=== PATIENT | female | born 1985 | race Caucasian/White ===

== ENCOUNTER 2021-05-01 12:23 | Emergency (ER) | payer OTHER, SELFPAY ==
[2021-05-01 12:32] VITALS: BP 144/86; PULSE 99; RESP 20; TEMP 36.5; O2SAT 100
--- NOTE | 2021-05-01 12:43 | ED.FEMALEGU ---
HPI - Female Genitourinary General Chief complaint: Urogenital-Female Stated complaint: uti Time Seen by Provider: 05/01/21 12:43 Source: patient and RN notes reviewed Mode of arrival: ambulatory Limitations: no limitations History of Present Illness HPI Narrative: 35-year-old female presents to the [facility] with complaints of urinary frequency, urgency and burning. Patient states it started a few days ago did some [id number] treatments, went away. Patient states she woke up this morning with even worse burning, frequency and urgency. Has suprapubic pressure. No back pain or abdominal pain. No chest pain. No fevers nausea vomiting or diarrhea. Related Data Allergies Allergy/AdvReac Type Severity Reaction Status Date / Time Penicillins Allergy Unknown Swelling Verified 05/01/21 12:38 Review of Systems Review of Systems: All systems reviewed & are unremarkable except as noted in HPI and below Constitutional: Constitutional: Reports no additional constitutional complaints Eyes: Eyes: Reports no additional eye complaints ENT: Reports system reviewed and no additional complaints, except as documented Cardiovascular: Cardiovascular: Reports no additional cardiovascular complaints Respiratory: Respiratory: Reports no additional respiratory complaints Gastrointestinal: Gastrointestinal: Reports as per HPI, Denies nausea and Denies vomiting Comments: Suprapubic pressure Genitourinary: Genitourinary: Reports as per HPI, Reports nocturia, Reports dysuria and Denies flank pain Musculoskeletal: Musculoskeletal: Reports no additional musculoskeletal complaints Integumentary/Breasts: Skin/Breast: Reports system reviewed and no additional complaints, except as docu Neurologic: Reports system reviewed and no additional complaints, except as documented Psychiatric: Psychiatric: Reports no additional psychiatric complaints Allergic/Immunologic: Allergic/Immunologic: Reports no additional allergic/immunologic complaints [facility] Past Medical History Medical History (Updated 05/01/21 @ 18:19 by Apolonia Wong) No significant medical problems Surgical History Surgical History (Updated 05/01/21 @ 18:20 by Apolonia Wong) Hx of inguinal hernia surgery Social History Social History (Updated 05/01/21 @ 18:20 by Apolonia Wong) Substance use: never Living arrangements: with family Gender identity (if verbalized by the patient): Female Comments At the time of my signature, I reviewed and agree with the nursing past medical, surgical, social, and family history. There is no relevant family history pertinent to the patient complaint. Exam Const: General: healthy appearing, no acute distress and alert Nutritional Appearance: well nourished Orientation/consciousness: patient oriented x3 HENMT: Head: normal to inspection Ears: external ears normal Eyes: Conjunctivae: conjunctivae normal Pupils: Equal, round and reactive pupils present Neck: Neck: normal visual inspection, no lymphadenopathy and no meningeal signs Chest: Chest palpation & inspection: normal inspection of the chest Resp: Effort & Inspection: normal respiratory effort and no use of accessory muscles Auscultation: clear to auscultation bilaterally, no rales, no rhonchi and no wheezes Cardio: Rate: regular rate Rhythm: regular rhythm GI: GI Palp: Yes Soft to palpation, Yes Tenderness to palpation present (GI) (Suprapubic), No Guarding due to palpation present (GI) and No Rebound tenderness present : General: Yes no CVA tenderness Back/Spine/Pelvis: Back: no CVA tenderness Skin: General skin exam: normal color Rashes: no rashes Wounds: no wounds Neuro: General: patient oriented x3, moves all extremities, no meningeal signs and no focal motor deficits Speech: normal speech Gait exam (Neuro): Normal gait present Extrem: General: normal to inspection and no pedal edema Psych: Mental Status: mental status grossly normal Affect: nor
== END 2021-05-01 13:00 | disposition home or self-care (01) ==
PROVIDERS: Emergency Provider Nurse Practitioner; PCP Family Medicine
DX: N30.01 Acute cystitis with hematuria (principal)
CPT/HCPCS: 81003; 87086; 99203; G0463

== ENCOUNTER 2022-01-09 06:06 | Emergency (ER) | payer OTHER, SELFPAY ==
--- NOTE | ~2022-01-09 | CT_ITS ---
EXAMINATION: CTA chest PE protocol DATE: 01/09/2022 08:01 INDICATION: Chest pain. Shortness of breath. TECHNIQUE: Computed tomography angiography (CTA) of the chest was performed with 100 mL Omnipaque-350 intravenous contrast timed to evaluate the pulmonary arteries. Coronal maximum intensity projection 3D-reconstructions were created by the technologist. Automated exposure control and iterative reconst ruction technique were employed. The dose-length product was 361.75 mGy-cm. COMPARISON: None. FINDINGS: Calcified right lung nodules and calcified right hilar lymph nodes are consistent with old granulomatous disease. There is minimal atelectasis bilaterally. There are 3 mm and 4 mm nodules in r ight upper lobe, likely benign. There is a 4 mm nodule in right middle lobe, likely benign. No pleura l effusion. The heart size is normal. No pericardial effusion. There is no pulmonary embolus. There i s mild thoracic spondylosis. IMPRESSION: 1. No pulmonary embolus. Reviewed, dictated and finalized at location A. IMPRESSION: 1. No pulmonary embolus.
[2022-01-09 06:10] VITALS: BP 119/74; PULSE 85; RESP 28; TEMP 36.3; O2SAT 100
[2022-01-09 06:35] VITALS: PULSE 85; O2SAT 100
--- NOTE | 2022-01-09 06:37 | ECG_ITS ---
Measurements Intervals [place] Rate: 81 P: 35 [place]: 144 QRS: 48 QRSD: 90 T: 29 QT: 330 QTc: 384 Interpretive Statements SINUS RHYTHM NORMAL ELECTROCARDIOGRAM NO PREVIOUS ECG AVAILABLE FOR COMPARISON Electronically Signed On 01-09-2022 15:54:00 CDT by Brooks Acevedo M.D.
--- NOTE | 2022-01-09 06:48 | ED.SOB ---
HPI - SOB/Dyspnea General Stated Complaint: SOB Source: patient Mode of arrival: ambulatory Limitations: no limitations History of Present Illness HPI Narrative: This is a 36-year-old female with no significant past medical history, presents with some shortness of breath and unable to catch her breath appears anxious, patient denies having any chest pain did have some episodes of nausea and vomiting currently no nausea or vomiting but does have some epigastric burning sensation, with no abdominal pain no flank pain no dysuria no headaches or blurry vision. proximally 1 to 2 months ago was tested positive for COVID she had similar symptoms but never got tested. MD elicited complaint: shortness of breath Onset (ago): hour(s) Timing: intermittent Severity: moderate Associated symptoms: nausea/vomiting Treatment prior to arrival: none Related Data Allergies Allergy/AdvReac Type Severity Reaction Status Date / Time Penicillins Allergy Unknown Swelling Verified 01/09/22 08:14 Review of Systems Review of Systems: All systems reviewed & are unremarkable except as noted in HPI and below PMFSH Past Medical History Medical History No significant medical problems Surgical History Surgical History Hx of inguinal hernia surgery Social History Social History Substance use: never Gender identity (if verbalized by the patient): Female Exam Const: General: healthy appearing and no acute distress HENMT: Head: normal to inspection Face and sinus: normal facial exam Mouth: Yes Normal oral and palatal mucosa present Eyes: Conjunctivae: conjunctivae normal Pupils: Equal, round and reactive pupils present EOM: EOMs intact bilaterally Direct Ophthalmoscopy: no photophobia Neck: Neck: normal visual inspection, no lymphadenopathy and no meningeal signs Chest: Chest palpation & inspection: normal inspection of the chest Resp: Effort & Inspection: normal respiratory effort Auscultation: clear to auscultation bilaterally Cardio: Rate: regular rate Rhythm: regular rhythm GI: GI Palp: Yes Soft to palpation Auscultation: normal bowel sounds : General: Yes bladder normal to palpation Urinary Catheter: Urinary Catheter: patent and draining Back/Spine/Pelvis: Back: no CVA tenderness Skin: General skin exam: normal color Rashes: no rashes Neuro: General: patient oriented x3, moves all extremities and no meningeal signs Cranial nerves: Yes Nystagmus not present Extrem: General: normal to inspection Psych: Mental Status: mental status grossly normal Course Course Emergency Course: Reassessment of patient, patient appears more comfortable not as anxious breathing easier of vitals continue to be stable and labs reviewed with patient and x-ray as well as EKG. Vital Signs Vital signs: Vital Signs Temperature 36.3 C L 01/09/22 06:10 Pulse Rate 85 01/09/22 06:10 Respiratory Rate 28 H 01/09/22 06:10 Blood Pressure 119/74 01/09/22 06:10 Pulse Oximetry 100 01/09/22 06:10 Oxygen Delivery Room Air 01/09/22 06:10 Temperature 36.6 C 01/09/22 12:10 Pulse Rate 76 01/09/22 12:10 Respiratory Rate 20 01/09/22 12:10 Blood Pressure 144/86 H 01/09/22 12:10 Pulse Oximetry 100 01/09/22 12:10 Oxygen Delivery Room Air 01/09/22 12:10 MDM - SOB/Dyspnea Lab Data Result diagrams: 01/09/22 06:57 01/09/22 06:57 Labs: Lab Results 01/09/22 01/09/22 01/09/22 Range/Units 06:57 06:57 06:57 WBC 8.6 (4.8-10.8) K/mm3 RBC 4.47 (4.20-5.40) M/mm3 Hgb 13.4 (12.0-15.0) g/dL Hct 40.1 (35.0-49.0) % MCV 89.7 (78.0-102.0) fL MCH 30.0 (27.0-31.0) pg MCHC 33.4 (32.0-36.0) g/dL RDW 12.3 (11.6-14.4) % Plt Count 301 (150-420) K/mm3 MPV
[2022-01-09] MEDS: PANTOPRAZOLE SODIUM IV 40 MG VIAL IV PUSH (06:52)
[2022-01-09 07:01] LABS: Basophils Absolute Auto 0.04 K/mm3 (0.00-0.10); Basophils Percent Auto 0.5 % (0.0-1.0); Eosinophils Absolute Auto 0.14 K/mm3 (0.02-0.50); Eosinophils Percent Auto 1.6 % (1.0-6.0); Hematocrit 40.1 % (35.0-49.0); Hemoglobin 13.4 g/dL (12.0-15.0); Immature Granulocyte Absolute 0.04 K/mm3 (0.00-0.00); Immature Granulocyte Percent A 0.5 % (0.0-0.0); Lymphocytes Absolute Auto 1.53 K/mm3 (1.10-4.50); Lymphocytes Percent Auto 17.8 % (18.0-42.0); Mean Corpuscular HGB Conc 33.4 g/dL (32.0-36.0); Mean Corpuscular Volume 89.7 fL (78.0-102.0); Mean Platelet Volume 9.5 fl (9.2-11.8); Monocytes Absolute Auto 0.42 K/mm3 (0.10-0.90); Monocytes Percent Auto 4.9 % (2.0-11.0); Neutrophils Absolute Auto 6.4 K/mm3 (1.7-7.2); Neutrophils Percent Auto 74.7 % (50.0-70.0); Platelet Count Result 301 K/mm3 (150-420); Red Blood Count 4.47 M/mm3 (4.20-5.40); Red Cell Distribution Width 12.3 % (11.6-14.4); White Blood Count 8.6 K/mm3 (4.8-10.8)
--- NOTE | 2022-01-09 07:12 | PC.NURSE ---
Report to SILVER Goldman
--- NOTE | 2022-01-09 07:16 | ED.SOB ---
HPI - SOB/Dyspnea General Chief Complaint: Shortness of Breath/Dyspnea Stated Complaint: SOB Time Seen by Provider: 01/09/22 07:15 Source: patient Mode of arrival: ambulatory Limitations: no limitations History of Present Illness HPI Narrative: 36-year-old female was exposed to COVID through her early this month. She has been having -- nonproductive cough -- intermittent chest pain -- shortness of breath she developed severe chest pain this morning which prompted her to come to the emergency room. The pain is substernal in location and radiates to the back. The patient had nausea with 1 episode of vomiting. The patient is not COVID vaccinated. MD elicited complaint: shortness of breath, cough and chest pain Onset (ago): day(s) ( Symptoms have been going off and on for the past 20 days.) Context: recent illness Severity: moderate Exacerbating factors: nothing Relieving factors: nothing Associated symptoms: chest pain, cough and nausea/vomiting Treatment prior to arrival: none Related Data Home oxygen amount: none Home Medications Medication Instructions Recorded Confirmed No Home Medications 01/09/22 01/09/22 Allergies Allergy/AdvReac Type Severity Reaction Status Date / Time Penicillins Allergy Unknown Swelling Verified 01/09/22 08:14 Review of Systems Review of Systems: All systems reviewed & are unremarkable except as noted in HPI and below Constitutional: Constitutional: Reports as per HPI and Reports no additional constitutional complaints Eyes: Eyes: Reports as per HPI and Reports no additional eye complaints ENT: Reports system reviewed and no additional complaints, except as documented and Reports as per HPI Cardiovascular: Cardiovascular: Reports as per HPI, Reports no additional cardiovascular complaints, Reports chest pain, Reports chest pain at rest and Reports dyspnea Respiratory: Respiratory: Reports as per HPI, Reports no additional respiratory complaints and Reports dyspnea Gastrointestinal: Gastrointestinal: Reports as per HPI, Reports no additional gastrointestinal complaints and Reports vomiting Genitourinary: Genitourinary: Reports no additional female genitourinary complaints and Reports as per HPI Musculoskeletal: Musculoskeletal: Reports no additional musculoskeletal complaints and Reports as per HPI Integumentary/Breasts: Skin/Breast: Reports system reviewed and no additional complaints, except as docu and Reports as per HPI Neurologic: Reports system reviewed and no additional complaints, except as documented and Reports as per HPI Psychiatric: Psychiatric: Reports no additional psychiatric complaints and Reports as per HPI Endocrine: Endocrine: Reports no additional endocrine complaints and Reports as per HPI Hematologic/Lymphatic: Hematologic/Lymphatic: Reports no additional hematologic/lymphatic complaints and Reports as per HPI Allergic/Immunologic: Allergic/Immunologic: Reports no additional allergic/immunologic complaints and Reports as per HPI PMFSH Past Medical History Medical History No significant medical problems Surgical History Surgical History Hx of inguinal hernia surgery Social History Social History Substance use: never Gender identity (if verbalized by the patient): Female Exam Const: General: cooperative, healthy appearing, comfortable and no acute distress Nutritional Appearance: overweight Orientation/consciousness: oriented to person, oriented to place and oriented to time Limitations: no limitations HENMT: Head: normal to inspection, No palpable skull fracture present and normocephalic Ears: hearing grossly normal bilaterally and external ears normal General nose exam: Normal external nose present and Normal nares present Face and sinus: normal facial exam and si
[2022-01-09 07:21] LABS: D Dimer 0.53 mg/L (0.19-0.50)
[2022-01-09 07:22] LABS: Alanine Aminotransferase 116 U/L (14-59); Alkaline Phosphatase 81 U/L (46-116); Anion Gap 10 mmol/L (8-16); Aspartate Amino Transferase 63 U/L (15-37); Bilirubin,Total 0.4 mg/dL (0.00-1.00); Blood Urea Nitrogen 11 mg/dL (7-18); Calcium 9.4 mg/dL (8.5-10.1); Carbon Dioxide 28 mmol/L (21-32); Chloride 103 mmol/L (98-108); Estimated CRCL calculation 81 ml/min; Estimated Glomerular Filt Rate > 60; Glucose 140 mg/dL (70-99); Osmolality Calculated 293 mOsm/kg (285-295); Potassium 3.9 mmol/L (3.5-5.1); Sodium 141 mmol/L (136-145); Total Protein 7.7 g/dL (6.4-8.2); Troponin I 4.9 ng/L (0.00-60.4)
[2022-01-09] MEDS: ONDANSETRON INJ 4 MG/2 ML VIAL IV PUSH (07:22)
[2022-01-09 07:36] LABS: SARS-CoV-2 RNA PCR Positive (Negative)
[2022-01-09] MEDS: LACTATED RINGERS 1,000 ML 999 ML IV CONT (07:41)
[2022-01-09 08:00] VITALS: BP 137/70; PULSE 80; RESP 20; O2SAT 100
[2022-01-09 10:00] VITALS: BP 140/80; PULSE 78; RESP 20; O2SAT 100
--- NOTE | 2022-01-09 10:48 | ECG_ITS ---
Measurements Intervals [place] Rate: 72 P: 42 [place]: 150 QRS: 70 QRSD: 93 T: 29 QT: 364 QTc: 400 Interpretive Statements SINUS RHYTHM NORMAL ECG COMPARED TO ECG 01/09/2022 07:08:23 NO SIGNIFICANT CHANGES Electronically Signed On 01-09-2022 15:55:14 CDT by Boroks Acevedo M.D.
[2022-01-09 11:37] LABS: Troponin I 4.9 ng/L (0.00-60.4)
[2022-01-09 12:10] VITALS: BP 144/86; PULSE 76; RESP 20; TEMP 36.6; O2SAT 100
== END 2022-01-09 12:15 | disposition home or self-care (01) ==
PROVIDERS: Emergency Medicine; Emergency Provider Internal Medicine Critical Care Medicine
DX: U07.1 COVID-19 (principal); R07.9 Chest pain, unspecified
CPT/HCPCS: 36415; 71275; 80053; 84484; 85025; 85380; 93005; 96361; 96374; 96375; 99284; C9113; C9803; J2405; J7120; Q9967; U0003; U0005

== ENCOUNTER 2022-01-10 18:32 | Emergency (ER) | payer OTHER, SELFPAY ==
[2022-01-10] VITALS (13 sets, daily range): BP systolic 131–151; BP diastolic 67–82; PULSE 82–104; RESP 14–23; TEMP 37.3; O2SAT 97–100
--- NOTE | ~2022-01-10 | XR_ITS ---
EXAMINATION: XR chest 1V portable Exam Date/Time: 01/10/2022 18:55 CDT HISTORY: MIDDLE CHEST PAIN RADIATES DOWN INTO STOMACH,SOB,COVID+ Comparison: None available. RESULT: Lines, tubes, and devices: None. Lungs and pleura: Clear. Cardiomediastinal silhouette: Normal cardiomediastinal silhouette. Other: No acute osseous or upper abdominal finding. IMPRESSION: No acute cardiopulmonary process. Reviewed, dictated and finalized at location K.
--- NOTE | ~2022-01-10 | CT_ITS ---
EXAMINATION: CT abdomen pelvis w con DATE: 01/10/2022 21:17 INDICATION: epigastric pain TECHNIQUE: Computed tomography (CT) of the abdomen and pelvis was performed with 100 mL Omnipaque-300 intravenous contrast. Automated exposure control and iterative reconstruction technique were employe d. The dose-length product was 961.23 mGy-cm. COMPARISON: CTPA 01/09/2022. FINDINGS: Lower thorax: Unremarkable Liver: Normal. Biliary/Gallbladder: Gallbladder is normal. No bile duct dilation. Pancreas: No mass or duct dilation. Spleen: Normal. Adrenals:No mass. Kidneys: No mass, stone, or hydronephrosis. GI tract: No small or large bowel dilation. Appendix not confidently visualized. Mesentery/Peritoneum: No ascites, mass, or free air. Retroperitoneum: No mass. Pelvis: Pelvic organs are within normal limits. Soft Tissues: Soft tissues and body wall unremarkable. Bones: No acute osseous finding. IMPRESSION: No acute abdominopelvic process. Reviewed, dictated and finalized at location K.
--- NOTE | 2022-01-10 18:37 | ECG_ITS ---
Measurements Intervals [place] Rate: 96 P: 37 [place]: 140 QRS: 61 QRSD: 96 T: -13 QT: 323 QTc: 409 Interpretive Statements SINUS RHYTHM MODERATE T-WAVE ABNORMALITY, CONSIDER ANTEROLATERAL ISCHEMIA [-0.1+ mV T-WAVE IN V3- V6] ABNORMAL ECG COMPARED TO ECG 01/09/2022 11:25:43 T-WAVE INVERSION NOW SEEN IN V4 Electronically Signed On 01-11-2022 7:10:23 CDT by Brooks Acevedo M.D.
[2022-01-10] MEDS: ASPIRIN 81 MG CHEWABLE TABLET 324 MG PO (18:51)
[2022-01-10 19:03] LABS: Basophils Absolute Auto 0.1 K/mm3 (0.0-0.1); Basophils Percent Auto 0.4 % (0.2-1.2); Eosinophils Absolute Auto 0.2 K/mm3 (0-0.3); Eosinophils Percent Auto 1.3 % (0-4.4); Hematocrit 41.7 % (37.0-47.0); Hemoglobin 13.5 g/dL (12.0-15.0); Immature Granulocyte Absolute 0.06 K/mm3 (0.00-0.031); Immature Granulocyte Percent A 0.4 % (0-0.5); Lymphocytes Absolute Auto 1.89 K/mm3 (0.9-3.2); Lymphocytes Percent Auto 12.1 % (18.3-44.2); Mean Corpuscular HGB Conc 32.4 g/dl (32-36); Mean Corpuscular Hemoglobin 29.3 pg (26-34); Mean Corpuscular Volume 90.7 fl (80-100); Mean Platelet Volume 9.5 fl (7.4-10.4); Monocytes Absolute Auto 0.8 K/mm3 (0.1-0.6); Monocytes Percent Auto 4.8 % (2.6-8.5); Neutrophils Absolute Auto 12.7 K/mm3 (1.3-6.7); Platelet Count Result 302 k/mm3 (150-375); Red Cell Distribution Width 12.7 % (11.5-14.5); White Blood Count 15.7 K/mm3 (4.5-10.0)
[2022-01-10 19:05] LABS: Alanine Aminotransferase 131 U/L (6-35); Albumin Level 4.6 g/dL (3.5-5.1); Alkaline Phosphatase 109 U/L (38-126); Anion Gap 6 mmol/L (8-16); Aspartate Amino Transferase 192 U/L (14-36); Bilirubin,Total 0.5 mg/dL (0.2-1.3); Blood Urea Nitrogen 13 mg/dL (7-17); Calcium 9.6 mg/dL (8.4-10.2); Carbon Dioxide 28 mmol/L (22-30); Chloride 104 mmol/L (98-107); Estimated CRCL calculation 82 ml/min; Estimated Glomerular Filt Rate > 60; Glucose 113 mg/dL (65-110); Lipase 137 U/L (23-300); Potassium 3.7 mmol/L (3.4-5.0); Sodium 138 mmol/L (137-145)
[2022-01-10 19:07] LABS: INR 0.9; Prothrombin Time 12.2 Seconds (11.1-14.7)
[2022-01-10 19:17] LABS: Troponin I < 0.012 ng/mL (0.000-0.034)
[2022-01-10] MEDS: BELLADONNA ALK/PHENOB ELIX 10 ML, MAG HYDROX/ALUMINUM HYD/SIMETH 30 ML, LIDOCAINE HCL 2... PO (19:28)
[2022-01-10] MEDS: ONDANSETRON INJ 4 MG/2 ML VIAL IV PUSH (19:31)
--- NOTE | 2022-01-10 19:39 | ED.GENADULT ---
HPI - General Adult General Chief complaint: Chest Pain Stated complaint: chest pain after eating Time Seen by Provider: 01/10/22 19:07 History of Present Illness HPI narrative: Patient is a 36-year-old female who presents to the emergency department with chief complaint of epigastric discomfort. Patient reports she was seen in the emergency department yesterday at [place] for chest pain after she had been diagnosed with being positive for COVID-19 patient reports that she had a CTA of the chest yesterday that showed no evidence of PE patient had negative cardiac biomarkers and was told that she had chest wall pain. Patient states she was feeling okay whenever she left the hospital but then woke up ate some cheese and crackers and then started having pain worse in the epigastric and lower chest region. The patient states the pain radiates to her back. Patient denies vomiting denies fever. Related Data Allergies Allergy/AdvReac Type Severity Reaction Status Date / Time Penicillins Allergy Unknown Swelling Verified 01/09/22 08:14 Review of Systems Review of Systems: A 10 system review of systems was completed on the patient and is negative except for what is stated in the HPI. Nursing and ancillary documentation was reviewed. [facility] Past Medical History Medical History No significant medical problems Surgical History Surgical History Hx of inguinal hernia surgery Social History Social History Substance use: never Gender identity (if verbalized by the patient): Female Exam Narrative: GENERAL: Well-appearing, well-nourished, and in no acute distress. HEAD: Normocephalic, atraumatic. EYES: PERRLA and EOMI. ENT: Nares clear, no rhinorrhea or epistaxis. Mucous membranes moist. NECK: Supple. CHEST: Clear to auscultation. No respiratory distress. HEART: Regular rate and rhythm. No murmur heard. Normal peripheral pulses. ABDOMEN: Soft, nontender, nondistended, normal active bowel sounds. EXTREMITIES: Normal range of motion. No edema. SKIN: Warm, dry, no rash. NEURO: No focal deficits. Alert and oriented x3. PSYCH: Normal mood and affect. Course Vital Signs Vital signs: Vital Signs Temperature 37.3 C 01/10/22 18:37 Pulse Rate 87 01/10/22 18:37 Respiratory Rate 20 01/10/22 18:37 Blood Pressure 141/77 H 01/10/22 18:37 Pulse Oximetry 99 01/10/22 18:37 Oxygen Delivery Room Air 01/10/22 18:37 Temperature 37.3 C 01/10/22 18:37 Pulse Rate 84 01/10/22 20:32 Respiratory Rate 15 01/10/22 20:32 Blood Pressure 131/67 01/10/22 20:32 Pulse Oximetry 98 01/10/22 20:32 Oxygen Delivery Room Air 01/10/22 18:37 Medical Decision Making MDM Narrative Medical decision making narrative: EKG interpreted by me sinus rhythm rate of [address] elevation or ST depression Vital Signs Vital Signs: Vital Signs Temperature 37.3 C 01/10/22 18:37 Pulse Rate 87 01/10/22 18:37 Respiratory Rate 20 01/10/22 18:37 Blood Pressure 141/77 H 01/10/22 18:37 Pulse Oximetry 99 01/10/22 18:37 Oxygen Delivery Room Air 01/10/22 18:37 Temperature 37.3 C 01/10/22 18:37 Pulse Rate 84 01/10/22 20:32 Respiratory Rate 15 01/10/22 20:32 Blood Pressure 131/67 01/10/22 20:32 Pulse Oximetry 98 01/10/22 20:32 Oxygen Delivery Room Air 01/10/22 18:37 Lab Data Result diagrams: 01/10/22 18:49 01/10/22 18:49 Labs: Lab Results 01/10/22 01/10/22 01/10/22 Range/Units 18:49 18:49 18:49 WBC 15.7 H (4.5-10.0) K/mm3 RBC 4.60 (4.2-5.4) M/mm3 Hgb 13.5 (12.0-15.0) g/dL Hct 41.7 (37.0-47.0) % MCV 90.7 (80-100) fl MCH 29.3 (26-34) pg MCHC 32.4 (32-36) g/dl RDW 12.7 (11.5-14.5) % Plt Count 302 (150-375) k/mm3 MPV 9
[2022-01-10 20:11] LABS: Partial Thromboplastin Time < 20.0 SECONDS (22.3-36.8)
[2022-01-10 20:44] LABS: Partial Thromboplastin Time 22.3 SECONDS (22.3-36.8)
[2022-01-10 21:59] LABS: Beta HCG Quantitative < 2.39 mIU/ML
[2022-01-10 22:34] LABS: Troponin I < 0.012 ng/mL (0.000-0.034)
[2022-01-11 00:02] VITALS: BP 115/74; PULSE 82; RESP 16; O2SAT 100
== END 2022-01-10 23:59 | disposition home or self-care (01) ==
PROVIDERS: Emergency Medicine; Emergency Provider Emergency Medicine
DX: U07.1 COVID-19 (principal); R10.13 Epigastric pain; R07.89 Other chest pain; R94.31 Abnormal electrocardiogram [ECG] [EKG]
CPT/HCPCS: 36415; 71045; 74177; 80053; 83690; 84484; 84702; 85025; 85610; 85730; 93005; 96374; 99284; A9270; J2405; Q9967

== ENCOUNTER 2022-06-25 13:01 | Emergency (ER) | payer OTHER, SELFPAY ==
--- NOTE | 2022-06-25 13:04 | ED.NAVMDI ---
HPI - Nausea/Vomiting/Diarrhea General Chief complaint: Nausea/Vomiting/Diarrhea Stated complaint: Chest Pain/Vomiting Time Seen by Provider: 06/25/22 13:05 Source: patient and RN notes reviewed History of Present Illness HPI Narrative: patient is a 36-year-old female presents to urgent care with complaints of epigastric pain, nausea vomiting diarrhea. Patient states that she had episodes of GERD after COVID in December and was able to change her diet have Prilosec with relief. Patient states the symptoms returned with diarrhea approximately 1 week ago and severe nausea, vomiting and chest discomfort this morning after having tacos last night. Patient states that she has tried Prilosec and Pepto without any relief. No other acute complaints. No acute distress noted. Patient aware of of care. Some parts of this dictation were generated by voice recognition software and may contain typographical and/or grammatical inaccuracies. Related Data Allergies Allergy/AdvReac Type Severity Reaction Status Date / Time Penicillins Allergy Unknown Swelling Verified 06/25/22 13:18 Review of Systems Review of Systems: CONSTITUTIONAL: Denies fever, chills, or sweats. EYES: Denies visual changes, redness, or discharge. ENT: Denies rhinorrhea, congestion, sore throat, or otalgia. CARDIOVASCULAR: Denies chest pain, palpitations, or edema. RESPIRATORY: Denies cough or dyspnea. GASTROINTESTINAL: Reports of nausea, vomiting, epigastric discomfort and diarrhea GENITOURINARY: Denies dysuria or hematuria. SKIN: Denies rash or itching. MUSCULOSKELETAL: Denies back pain, joint pain, or myalgia. NEUROLOGIC: Denies headache, numbness, or weakness. All other systems reviewed are negative, except as documented in HPI. [facility] Past Medical History Medical History No significant medical problems Surgical History Surgical History Hx of inguinal hernia surgery Social History Social History Substance use: never Gender identity (if verbalized by the patient): Female Comments At the time of my signature, I reviewed and agree with the nursing past medical, surgical, social, and family history. There is no relevant family history pertinent to the patient complaint. Exam Narrative: GENERAL: This is a well-nourished, well-developed patient, tearful HEAD: normocephalic, atraumatic. EYES: PERRL. Sclera clear/white. Vision is grossly intact. EARS: External ears normal NOSE: External nose normal with no obvious nasal discharge, nares without redness, no rhinorrhea. THROAT: Mucous membranes moist NECK: Neck supple CARDIOVASCULAR: Regular rate and rhythm without murmurs, gallops, or rubs. RESPIRATORY: Clear to auscultation. Breath sounds equal bilaterally. No wheezes, rales, or rhonchi. GASTROINTESTINAL: Abdomen soft, moderate epigastric tenderness with rebound tenderness to the left upper quadrant, nondistended. Bowel sounds are active. SKIN: warm, intact with no suspicious lesions or rash, good texture and turgor. NEURO: awake, alert, and oriented to person, place and time. There were no obvious focal neurologic abnormalities. EXTREMITIES: No clubbing, cyanosis, or edema. Course Course Level of Care: Express Care Visit Vital Signs Vital signs: Vital Signs Temperature 98.3 F 06/25/22 13:10 Pulse Rate 109 H 06/25/22 13:10 Respiratory Rate 20 06/25/22 13:10 Blood Pressure 169/90 H 06/25/22 13:10 Pulse Oximetry 100 06/25/22 13:10 Oxygen Delivery Room Air 06/25/22 13:10 Temperature 98.3 F 06/25/22 13:10 Pulse Rate 109 H 06/25/22 13:10 Respiratory Rate 20 06/25/22 13:10 Blood Pressure 169/90 H 06/25/22 13:10 Pulse Oximetry 100 06/25/22 13:10 Oxygen Delivery Room Air 06/25/22 13:10 reviewed- Patient is informed that they may h
[2022-06-25 13:10] VITALS: BP 169/90; PULSE 109; RESP 20; TEMP 36.8; O2SAT 100
--- NOTE | 2022-06-25 13:41 | ECG_ITS ---
Measurements Intervals [place] Rate: 89 P: 55 [place]: 141 QRS: 71 QRSD: 92 T: 7 QT: 350 QTc: 428 Interpretive Statements SINUS RHYTHM AND SPECIFIC T-WAVE ABNORMALITY, CONSIDER ANTERIOR ISCHEMIA [-0.1+ mV T WAVE IN V3/V4] COMPARED TO ECG 01/10/2022 18:45:46 NO SIGNIFICANT CHANGES Electronically Signed On 06-26-2022 7:39:51 [employer]LE [facility]LEXER by Brooks Acevedo M.D.
== END 2022-06-25 14:05 | disposition left against medical advice (07) ==
PROVIDERS: Emergency Provider Nurse Practitioner Family; PCP Family Medicine
DX: K21.9 Gastro-esophageal reflux disease without esophagitis (principal); Z86.16 Personal history of COVID-19
CPT/HCPCS: 93005; 99213; G0463

== ENCOUNTER 2022-07-22 04:35 | Emergency (ER) | payer OTHER, SELFPAY ==
[2022-07-22] VITALS (11 sets, daily range): BP systolic 118–138; BP diastolic 65–88; PULSE 64–86; RESP 14–18; TEMP 35.8–36.6; O2SAT 98–100
--- NOTE | ~2022-07-22 | CT_ITS ---
EXAMINATION: CT abdomen pelvis w con DATE: 07/22/2022 08:09 INDICATION: Right upper quadrant abdominal pain, elevated liver function tests TECHNIQUE: Computed tomography (CT) of the abdomen and pelvis was performed with 100 CC Omnipaque 350 intravenous contrast. Automated exposure control and iterative reconstruction technique were employe d. Exam dose: 580.98 mGy-cm total exam DLP. COMPARISON: 01/10/2022 CT abdomen pelvis FINDINGS: Since 01/10/2022 there is intrahepatic and extrahepatic bile duct dilatation, common bile du ct measuring up to 8.8 mm. There is gallbladder distention and mild gallbladder wall thickening. Dist al common bile duct obstruction is suspected. No hepatic, splenic, pancreatic, and adrenal or renal space-occupying mass lesion is detected. There are multiple calcified splenic granulomas. No urinary tract calculus or hydroureteronephrosis. The ur inary bladder is unremarkable. Retroverted uterus. 3 cm right ovarian cyst. There is mild free fluid in the posterior cul-de-sac. Status post bilateral tubal ligation. No bowel obstruction or intraperitoneal free air. The appendix is not visualized. Normal caliber of the abdominal aorta. No intraperitoneal or retroperitoneal or pelvic mass lesion or adenopathy or ascites. Included skeletal structures are unremarkable. IMPRESSION: Distal common bile duct obstruction since 01/10/2022; consider gallbladder ultrasound and ERCP or MRCP Retroverted uterus 3 cm right ovarian cyst; mild free fluid in the posterior cul-de-sac Status post bilateral tubal ligation Reviewed, dictated and finalized at [facility]. Reviewed, dictated and finalized at [facility]. TER IMPRESSION: Distal common bile duct obstruction since 01/10/2022; consider gall bladder ultrasound and ERCP or MRCP Retroverted uterus 3 cm right ovarian cyst; mild free fluid in the posterior cul-de-sac Status post bilateral tubal ligation
--- NOTE | 2022-07-22 04:44 | PC.NURSE ---
RN calls to alert ERP of new pt. ERP orders CBC, CMP, Mg, and a troponin STAT. ERP also orders for a GI cocktail to be administered STAT. RN confirms order and places.
[2022-07-22] MEDS: MAG HYDROX/ALUMINUM HYD/SIMETH 30 ML, PHENobarb/HYOSCY/ATROPINE/SCOP 32.4 MG, LIDOCAINE... PO (04:57)
--- NOTE | 2022-07-22 04:59 | PC.NURSE ---
Pt states that she just had an episode of emesis and is requesting a medication to help ease her stomach.
[2022-07-22] MEDS: ONDANSETRON HCL ODT 4 MG TABLET PO (05:02)
[2022-07-22 05:34] LABS: Basophils Absolute Auto 0.03 K/mm3 (0.00-0.10); Basophils Percent Auto 0.3 % (0.0-1.0); Eosinophils Absolute Auto 0.02 K/mm3 (0.02-0.50); Eosinophils Percent Auto 0.2 % (1.0-6.0); Hematocrit 40.5 % (35.0-49.0); Hemoglobin 13.4 g/dL (12.0-15.0); Immature Granulocyte Absolute 0.03 K/mm3 (0.00-0.00); Immature Granulocyte Percent A 0.3 % (0.0-0.0); Lymphocytes Absolute Auto 0.84 K/mm3 (1.10-4.50); Mean Corpuscular HGB Conc 33.1 g/dL (32.0-36.0); Mean Corpuscular Hemoglobin 29.1 pg (27.0-31.0); Mean Platelet Volume 9.9 fl (9.2-11.8); Monocytes Absolute Auto 0.68 K/mm3 (0.10-0.90); Monocytes Percent Auto 7.3 % (2.0-11.0); Neutrophils Absolute Auto 7.7 K/mm3 (1.7-7.2); Neutrophils Percent Auto 82.9 % (50.0-70.0); Platelet Count Result 250 K/mm3 (150-420); Red Cell Distribution Width 12.2 % (11.6-14.4); White Blood Count 9.3 K/mm3 (4.8-10.8)
--- NOTE | 2022-07-22 05:42 | ED.ABDPAIN ---
HPI - Abdominal Pain General Chief Complaint: Abdominal Pain <Luis Mccabe MD - Last Filed: 07/25/22 12:17> Stated Complaint: Abdominal pain <Luis Mccabe MD - Last Filed: 07/25/22 12:17> Time Seen by Provider: 07/22/22 08:37 <Luis Mccabe MD - Last Filed: 07/25/22 12:17> Source: patient and RN notes reviewed <Luis Mccabe MD - Last Filed: 07/25/22 12:17> Mode of arrival: ambulatory <Luis Mccabe MD - Last Filed: 07/25/22 12:17> Limitations: no limitations <Luis Mccabe MD - Last Filed: 07/25/22 12:17> History of Present Illness MD elicited complaint: abdominal pain <Luis Mccabe MD - Last Filed: 07/25/22 12:17> Pertinent past history: constipation <Luis Mccabe MD - Last Filed: 07/25/22 12:17> Onset (ago): hour(s) (10) <Luis Mccabe MD - Last Filed: 07/25/22 12:17> Pain Consistency: constant <Luis Mccabe MD - Last Filed: 07/25/22 12:17> Location: epigastric <Luis Mccabe MD - Last Filed: 07/25/22 12:17> Severity: moderate <Luis Mccabe MD - Last Filed: 07/25/22 12:17> Quality: cramping, stabbing and sharp <Luis Mccabe MD - Last Filed: 07/25/22 12:17> Radiation: none <Luis Mccabe MD - Last Filed: 07/25/22 12:17> Migration to: no migration <Luis Mccabe MD - Last Filed: 07/25/22 12:17> Exacerbating factors: eating <Luis Mccabe MD - Last Filed: 07/25/22 12:17> Relieving factors: nothing <Luis Mccabe MD - Last Filed: 07/25/22 12:17> Associated symptoms: nausea and vomiting <Luis Mccabe MD - Last Filed: 07/25/22 12:17> Related Data Home Medications: Home Medications Medication Instructions Recorded Confirmed No Home Medications 07/22/22 07/22/22 <Luis Mccabe MD - Last Filed: 07/25/22 12:17> Allergies/Adverse Reactions: Allergies Allergy/AdvReac Type Severity Reaction Status Date / Time Penicillins Allergy Unknown Swelling Verified 07/22/22 04:46 <Luis Mccabe MD - Last Filed: 07/25/22 12:17> PMFSH Past Medical History Medical History: Medical History (Updated 07/23/22 @ 00:01 by Vishnu Vega) No significant medical problems <Luis Mccaeb MD - Last Filed: 07/25/22 12:17> Surgical History Surgical History: Surgical History (Updated 07/22/22 @ 05:48 by Luis Mccabe MD) History of bilateral tubal ligation Hx of inguinal hernia surgery <Luis Mccabe MD - Last Filed: 07/25/22 12:17> Social History Social History: Social History Substance use: never Gender identity (if verbalized by the patient): Female <Luis Mccabe MD - Last Filed: 07/25/22 12:17> Exam Const: General: no acute distress, alert and ill appearing acutely <Luis Mccabe MD - Last Filed: 07/25/22 12:17> Nutritional Appearance: well nourished <Luis Mccabe MD - Last Filed: 07/25/22 12:17> Orientation/consciousness: patient oriented x3 <Luis Mccabe MD - Last Filed: 07/25/22 12:17> Limitations: no limitations <Luis Mccabe MD - Last Filed: 07/25/22 12:17> Other: female tech in room during examination. <Luis Mccabe MD - Last Filed: 07/25/22 12:17> HENMT: Head: normal to inspection <Luis Mccabe MD - Last Filed: 07/25/22 12:17> Ears: external ears normal <Luis Mccabe MD - Last Filed: 07/25/22 12:17> Face/Nose/Sinus: Normal external nose present <Luis Mccabe MD - Last Filed: 07/25/22 12:17> Face and sinus: normal facial exam <Luis Mccabe MD - Last Filed: 07/25/22 12:17> Mouth: Yes moist mucous membranes <Luis Mccabe MD - Last Filed: 07/25/22 12:17> Eyes: Conjunctivae: conjunctivae normal <Luis Mccabe MD - Last Filed: 07/25/22 12:17> Pupils: Equal, round and reactive pupils present <Luis Mccabe MD - Last Filed: 07/25/22 12:17> EOM: EOMs intact bilaterally <Luis Mccabe MD - Last Filed: 07/25/22
[2022-07-22 05:55] LABS: Alanine Aminotransferase 239 U/L (14-59); Alkaline Phosphatase 146 U/L (46-116); Anion Gap 7 mmol/L (8-16); Aspartate Amino Transferase 380 U/L (15-37); Bilirubin,Total 0.9 mg/dL (0.00-1.00); Blood Urea Nitrogen 6 mg/dL (7-18); Calcium 9.4 mg/dL (8.5-10.1); Carbon Dioxide 27 mmol/L (21-32); Chloride 101 mmol/L (98-108); Estimated CRCL calculation 78 ml/min; Estimated Glomerular Filt Rate > 60; Glucose 145 mg/dL (70-99); Magnesium 1.8 mg/dL (1.8-2.4); Osmolality Calculated 280 mOsm/kg (285-295); Potassium 3.8 mmol/L (3.5-5.1); Sodium 135 mmol/L (136-145); Total Protein 7.5 g/dL (6.4-8.2)
[2022-07-22 05:56] LABS: Troponin I < 4.0 ng/L (0.00-60.4)
[2022-07-22 06:09] LABS: Amylase 65 U/L (25-115); Lipase 100 U/L (16-77)
[2022-07-22] MEDS: KETOROLAC 30 MG/ML VIAL (*BKC) IM (06:12)
[2022-07-22 06:14] LABS: Influenza A QL RT-PCR Negative (Negative); Influenza B QL RT-PCR Negative (Negative); SARS-CoV-2 RNA PCR Negative (Negative)
[2022-07-22 06:15] LABS: RSV RNA, RT-PCR Negative (Negative)
[2022-07-22] MEDS: KETOROLAC 30 MG/ML VIAL (*BKC) (14:04)
--- NOTE | 2022-07-22 18:11 | PC.NURSE ---
@[id number] dr vital at [facility] spoke with erp and accepted pt. awaiting bed assignment.
== END 2022-07-22 19:30 | disposition short-term general hospital (02) ==
PROVIDERS: Emergency Medicine; Emergency Provider Emergency Medicine; PCP Family Medicine
DX: K85.90 Acute pancreatitis without necrosis or infection, unspecified (principal); R10.9 Unspecified abdominal pain; K83.1 Obstruction of bile duct; N83.201 Unspecified ovarian cyst, right side; Z20.822 Contact with and (suspected) exposure to COVID-19
CPT/HCPCS: 36415; 74177; 80053; 82150; 83690; 83735; 84484; 85025; 87637; 96372; 99285; A9270; J1885; Q9967

== ENCOUNTER 2024-03-23 08:26 | Emergency (ER) | payer OTHER, SELFPAY ==
[2024-03-23 08:26] VITALS: BP 147/82; PULSE 112; RESP 16; TEMP 36.2; O2SAT 99
[2024-03-23 08:59] LABS: Add Urine Microscopic? NO; Appearance Urine Clear (Clear); Bilirubin Urine Negative (Negative); Blood Urine Negative (Negative); Color Urine Yellow (Yellow); Glucose Urine UA Negative (Negative); Ketones Urine Negative (Negative); Leukocyte Esterase Ur Negative LEU/UL (Negative); Nitrate Urine Negative (Negative); Protein Urine Negative (Negative); Urobilinogen Urine 0.2 mg/dL (0.2-1.0)
[2024-03-23] MEDS: KETOROLAC (*BKC) 60 MG/2 ML VIAL IM (09:08)
[2024-03-23] MEDS: ORPHENADRINE CITRATE 30 MG/ML 2 ML VIAL 60 MG IM (09:10)
--- NOTE | 2024-03-23 09:16 | ED.ABDPAIN ---
HPI - Abdominal Pain General Chief Complaint: Abdominal Pain Stated Complaint: left lower abdominal pain and flank pain Time Seen by Provider: 03/23/24 08:32 Source: patient Mode of arrival: ambulatory Limitations: no limitations History of Present Illness HPI narrative: this is a 30-year-old female with no significant past medical history presents with a 2 day history of left lower back pain radiating into her left lower leg rates her pain about a 7/10 there is no abdominal pain no suprapubic pain no flank pain no dysuria no hematuria the patient was doing outdoor yd work and strain her lower back area. Patient no history of kidney stones does have a remote history of inguinal hernia repair but there are is no tenderness in the left inguinal region with palpation no nausea vomiting no diarrhea constipation no fever chills. MD elicited complaint: other Pertinent past history: none Onset (ago): day(s) Pain Consistency: constant Location: other ( Lower back) Severity: moderate Pain scale (0-10): 7 Quality: aching and sharp Radiation: other ( left lower leg and hip ) Related Data Allergies Allergy/AdvReac Type Severity Reaction Status Date / Time Penicillins Allergy Unknown Swelling Verified 03/23/24 08:45 Review of Systems Review of Systems: All systems reviewed & are unremarkable except as noted in HPI and below PMFSH Past Medical History Medical History No significant medical problems Surgical History Surgical History History of bilateral tubal ligation Hx of inguinal hernia surgery Social History Social History Substance use: never Living arrangements: with family Gender identity (if verbalized by the patient): Female Exam Const: General: healthy appearing and no acute distress Nutritional Appearance: well nourished Orientation/consciousness: patient oriented x3 Limitations: no limitations Neck: Neck: normal visual inspection Chest: Chest palpation & inspection: normal inspection of the chest Resp: Effort & Inspection: normal respiratory effort Auscultation: clear to auscultation bilaterally Cardio: Rate: regular rate Rhythm: regular rhythm GI: GI Palp: Yes Soft to palpation Auscultation: normal bowel sounds : General: Yes bladder normal to palpation Urinary Catheter: Urinary Catheter: patent and draining Back/Spine/Pelvis: Back: no CVA tenderness Skin: General skin exam: normal color Neuro: General: patient oriented x3, moves all extremities, no meningeal signs and no focal motor deficits Extrem: Other: Left lower back L4 left para vertebral tenderness with positive straight leg raising test on the left Course Course Emergency Course: patient had a urinalysis performed which was negative patient did receive 60mg IM Toradol and muscle relaxant which reassessment pain level has improved. Vital Signs Vital signs: Vital Signs Temperature 36.2 C L 03/23/24 08:26 Pulse Rate 112 H 03/23/24 08:26 Respiratory Rate 16 03/23/24 08:26 Blood Pressure 147/82 H 03/23/24 08:26 Pulse Oximetry 99 03/23/24 08:26 Oxygen Delivery Room Air 03/23/24 08:26 Temperature 36.2 C L 03/23/24 08:26 Pulse Rate 112 H 03/23/24 08:26 Respiratory Rate 16 03/23/24 08:26 Blood Pressure 147/82 H 03/23/24 08:26 Pulse Oximetry 99 03/23/24 08:26 Oxygen Delivery Room Air 03/23/24 08:35 MDM - Abdominal Pain Lab Data Labs: Lab Results 03/23/24 Range/Units 08:53 Urine Color Yellow (Yellow) Urine Appearance Clear (Clear) Urine pH 6.0 (5.0-8.0) Ur Specific [place] 1.020 (1.010-1.020) Urine Protein Negative (Negative) Urine Glucose (UA) Negative (Negative) Urine Ketones Negative (Negative) Ur Blood (Man) Negative (Negative) Urine Nitrate Negative (Negat
--- NOTE | 2024-03-23 09:40 | PC.NURSE ---
PT REPORTS PAIN IS MUCH BETTER AT THIS TIME.
[2024-03-23 09:45] VITALS: PULSE 68; RESP 18; O2SAT 99
== END 2024-03-23 09:45 | disposition home or self-care (01) ==
LOC: CHSED 09:34
PROVIDERS: Emergency Provider Emergency Medicine; PCP Family Medicine
DX: S39.012A Strain of muscle, fascia and tendon of lower back, initial encounter (principal); X58.XXXA Exposure to other specified factors, initial encounter
CPT/HCPCS: 81003; 96372; 99284; J1885; J2360